=== PATIENT | female | born 1965 | race Caucasian/White ===

== ENCOUNTER 2019-08-16 11:21 | Emergency (ER) | payer OTHER ==
[~2019-08-16] VITALS: Ht 160 cm; Wt 63.5 kg
[2019-08-16] MEDS ORDERED: KETOROLAC TROMETH 30 MG/ML 1ML VIAL IV ONE (12:00)
[2019-08-16] MEDS ORDERED: ONDANSETRON HCL 4 MG/2 ML VIAL IV ONE ×2 (12:00→16:15)
[2019-08-16 12:03] LABS: Basophils # (auto) 0.1 uL; Basophils % (auto) 0.4 % (0.0-2.0); Eosinophils # (auto) 0 uL; Eosinophils % (auto) 0.1 % (0.0-7.0); Hemoglobin 12.4 g/dL (12.2-16.2); Lymphocytes # (auto) 0.8 uL; Lymphocytes % (auto) 5.8 % (10.0-50.0); Mean Corpuscular Hemoglobin 30.3 pg (28.0-32.0); Mean Corpuscular Hgb Conc. 33.4 g/dL (32.0-36.0); Mean Corpuscular Volume 90.9 fL (80.0-100.0); Monocytes # (auto) 0.8 uL; Monocytes % (auto) 5.4 % (0.0-12.0); Neutrophils # (auto) 12.2 uL; Neutrophils % (auto) 88.3 % (37.0-80.0); Platelet Count (auto) 224 10^3/uL (140-450); Red Blood Cells 4.08 10^6/uL (4.0-5.20); Red Cell Distribution Width 12.8 % (11.8-14.3); White Blood Cell 13.8 10^3/uL (4.4-10.8)
[2019-08-16 12:21] LABS: Potassium 3.4 mmol/L (3.5-5.1)
[2019-08-16 12:30] LABS: Albumin 3.4 g/dL (3.4-5.0); BUN/Creatinine Ratio 9.6; Bilirubin, Total 0.6 mg/dL (0.2-1.0); Calcium 8.7 mg/dL (8.5-10.1); Total Protein 7.9 g/dL (6.4-8.2)
[2019-08-16] MEDS ORDERED: MORPHINE SULF INJ 2 MG/ML SYRINGE 1ML IV ONE (16:15)
[2019-08-16] MEDS ORDERED: POTASSIUM EFFERVESENT TAB 25 MEQ PO ONE (16:15)
[2019-08-16 21:00] LABS: Urine Bacteria FEW /hpf (None Seen); Urine Blood Negative /uL (Negative); Urine WBC 87 /hpf (0 - 5)
[2019-08-16] MEDS ORDERED: cefTRIAXone 1GM/50ML D5W 50 ML IV ONE (22:15)
[2019-08-16] MEDS ORDERED: SODIUM CHLORIDE 0.9% 500 ML IV ONE (22:15)
[2019-08-16] MEDS ORDERED: HYDROcodone-ACET 10/325MG TAB PO ONE (22:30)
[2019-08-17 00:13] VITALS: BP 129/85
== END 2019-08-17 00:27 | disposition home or self-care (01) ==
LOC: ER 11:21 → EDBD 11:21 → ER 08-17 00:27
DX: E86.0 Dehydration (principal); E87.6 Hypokalemia; D72.829 Elevated white blood cell count, unspecified
CPT/HCPCS: 36415; 74176; 76856; 80053; 81001; 85025; 93005; 96365; 96375; 96376; 99284; J0696; J1885; J2270; J2405; J7040

== ENCOUNTER 2023-10-27 10:35 | Emergency (ER) | payer OTHER ==
[~2023-10-27] VITALS: Ht 160 cm; Wt 64.0 kg
[2023-10-27] MEDS ORDERED: HYDROcodone-ACET 5/325MG TAB PO ONE ×2 (12:00→14:00)
[2023-10-27 12:07] VITALS: BP 182/92; PULSE 102; RESP 18; TEMP 98.2; O2SAT 96
[2023-10-27] MEDS ORDERED: HYDR-4902 PO (14:10)
== END 2023-10-27 14:27 | disposition home or self-care (01) ==
LOC: ER 10:35
DX: M25.562 Pain in left knee (principal); M25.552 Pain in left hip; Z79.899 Other long term (current) drug therapy
CPT/HCPCS: 73502; 73562